=== PATIENT | male | born 1960 | race African-American/Black ===

== ENCOUNTER 2023-04-27 11:46 | Inpatient (IN) | payer MEDICAID ==
[~2023-04-27] VITALS: Ht 185.4 cm; Wt 80.9 kg
[2023-04-27 14:50] LABS: ALANINE AMINOTRANSFERASE 19 U/L (12-78); ALBUMIN 3.9 G/DL (3.4-5.0); ALBUMIN/GLOBULIN RATIO 0.9 (1.1-1.5); ALKALINE PHOSPHATASE 64 IU/L (46-116); ANION GAP 6 (8-16); ASPARTATE AMINO TRANSFERASE 22 U/L (10-37); BILIRUBIN,TOTAL 0.3 MG/DL (0.1-1.0); BLOOD UREA NITROGEN 12 MG/DL (7-18); BUN/CREATININE RATIO 10.5 (10.0-20.0); CHLORIDE 102 MMOL/L (99-107); CREATININE 1.14 MG/DL (0.60-1.10); GLUCOSE 73 MG/DL (70-104); POTASSIUM 3.8 MMOL/L (3.5-5.1); SODIUM 140 MMOL/L (135-145); TOTAL CARBON DIOXIDE 31.7 MMOL/L (24-32); TOTAL PROTEIN 8.2 G/DL (6.4-8.2); eCRCL 77 ML/MIN; eGFR 79 ML/MIN
[2023-04-27 14:51] LABS: BASOPHILS % (AUTO) 0.2 % (0-1); EOSINOPHILS # (AUTO) 0.1 X10'3 (0-0.9); EOSINOPHILS % (AUTO) 3.2 % (0-6); HEMOGLOBIN 14.7 g/dl (14.0-17.9); LYMPHOCYTES # (AUTO) 1.2 X10'3 (1.1-4.8); LYMPHOCYTES % (AUTO) 38.2 % (21-51); MEAN CORPUSCULAR HGB CONC 32.8 g/dL (33.0-36.5); MEAN CORPUSCULAR VOLUME 94.5 FL (78-98); MEAN PLATELET VOLUME 8.6 FL (7.4-10.4); MONOCYTES # (AUTO) 0.3 X10'3 (0-0.9); MONOCYTES % (AUTO) 10.6 % (2-12); NEUTROPHILS # (AUTO) 1.5 X10'3 (1.8-7.7); NEUTROPHILS % (AUTO) 47.8 % (42-75); PLATELET COUNT 133 X10'3 (140-440); RED BLOOD COUNT 4.76 X10'6 (4.70-6.10); RED CELL DISTRIBUTION WIDTH 14.3 % (11.5-14.5); WHITE BLOOD COUNT 3.1 X10'3 (4.5-11.0)
--- NOTE | 2023-04-27 15:10 | NUR ---
ATTEMPTED TO CALL DR WHYTE FOR DR LAY. LEFT A MESSAGE- LM
[2023-04-27] MEDS ORDERED: cefTAZidime inj 2 GM in normal saline 100ml IV soln 100 ML IV ONE (15:15)
[2023-04-27] MEDS ORDERED: VANCOmycin 2,000MG in NS 500ml IV soln IV ONE (16:00)
[2023-04-27] MEDS ORDERED: HYDROcodone/acetaminophen 5mg/325mg tablet PO PRN (17:15)
[2023-04-27] MEDS ORDERED: magnesium hydroxide 30ml (MOM) UD suspension PO PRN (17:15)
[2023-04-27] MEDS ORDERED: morphine 2 MG/ML inj. syringe IV PRN ×2 (17:15)
[2023-04-27] MEDS ORDERED: ondansetron/PF 4mg/2ml inj IV PRN (17:15)
[2023-04-27] MEDS ORDERED: mag hydrox/Alum hydrox/simeth 30ml oral suspension PO PRN (17:15)
[2023-04-27] MEDS ORDERED: acetaminophen 325mg tablet PO PRN ×2 (17:15)
[2023-04-27] MEDS ORDERED: HYDROcodone/acetaminophen 10/325mg tab PO PRN (17:15)
[2023-04-27 17:43] LABS: PRO BRAIN NATRIURETIC PEPTIDE 155 PG/ML (0-125)
[2023-04-27 17:44] LABS: BILIRUBIN,URINE NEGATIVE (Neg); CLARITY,URINE CLEAR (Clear); COLOR,URINE YELLOW (Yellow); GLUCOSE, URINE NEGATIVE (Neg); KETONES,URINE NEGATIVE (Neg); LEUKOCYTE ESTERASE ,URINE NEGATIVE (Neg); NITRITES, URINE NEGATIVE (Neg); OCCULT BLOOD,URINE NEGATIVE (Neg); PH,URINE 6.5 (4.8-8.0); PROTEIN,URINE NEGATIVE (Neg); UROBILINOGEN,URINE 0.2 E.U/dL (0.2-1.0)
[2023-04-27 17:46] LABS: UA COLLECTION TYPE VOIDED
--- NOTE | 2023-04-27 18:07 | NUR ---
Per Dr. Vickers, he spoke to Dr. Vazquez about this patient and that Dr. Vazquez did not think patient need to be admitted. Charge nurse Lavon and Scrub Woman aware of this
--- NOTE | 2023-04-27 18:23 | NUR ---
Called Yamini Townsend (supervisor contact lens on file) without success. Left voicemail to call back ER. Per patient his caregiver/provider Jovany is the one who can give him a ride. Patient stated that I can call Yamini and have Yamini call Jovany to pick him up
[2023-04-27] MEDS: docusate sod 100mg capsule PO SCH (20:00)
[2023-04-27] MEDS ORDERED: TRAM50TA2 PO (20:26)
[2023-04-27] MEDS ORDERED: TIZA-189 PO (20:26)
[2023-04-27] MEDS ORDERED: APIX5TAB3 PO (20:26)
--- NOTE | 2023-04-27 22:24 | NUR ---
report called to floor nurse. pt tx to room 4021a by tech
[2023-04-27 22:50] VITALS: BP 144/95; PULSE 67; RESP 18; TEMP 97.1; O2SAT 99
[2023-04-28] MEDS: metroNIDAZOLE-Flagyl 500mg/NS 100 ML IV SCH ×2 (00:04→09:04)
[2023-04-28] MEDS ORDERED: vancomycin/NS 1 GM ADD-VANTAGE 250 ML IV SCH (04:00)
[2023-04-28 06:00] VITALS: BP 138/85; PULSE 64; RESP 14; TEMP 97.9; O2SAT 98
[2023-04-28 06:07] LABS: BASOPHILS % (AUTO) 1.1 % (0-1); EOSINOPHILS # (AUTO) 0.1 X10'3 (0-0.9); EOSINOPHILS % (AUTO) 2.8 % (0-6); HEMATOCRIT 40.7 % (42.0-52.0); HEMOGLOBIN 13.2 g/dl (14.0-17.9); LYMPHOCYTES # (AUTO) 1.3 X10'3 (1.1-4.8); LYMPHOCYTES % (AUTO) 36.1 % (21-51); MEAN CORPUSCULAR HEMOGLOBIN 30.5 PG (27.0-31.0); MEAN CORPUSCULAR HGB CONC 32.5 g/dL (33.0-36.5); MEAN CORPUSCULAR VOLUME 93.8 FL (78-98); MEAN PLATELET VOLUME 8.8 FL (7.4-10.4); MONOCYTES # (AUTO) 0.4 X10'3 (0-0.9); MONOCYTES % (AUTO) 12.3 % (2-12); NEUTROPHILS # (AUTO) 1.7 X10'3 (1.8-7.7); NEUTROPHILS % (AUTO) 47.7 % (42-75); PLATELET COUNT 113 X10'3 (140-440); RED BLOOD COUNT 4.34 X10'6 (4.70-6.10); RED CELL DISTRIBUTION WIDTH 14.2 % (11.5-14.5); WHITE BLOOD COUNT 3.5 X10'3 (4.5-11.0)
[2023-04-28 06:24] LABS: ALBUMIN 3.2 G/DL (3.4-5.0); ANION GAP 5 (8-16); BLOOD UREA NITROGEN 10 MG/DL (7-18); BUN/CREATININE RATIO 10.3 (10.0-20.0); CALCIUM 9.2 MG/DL (8.5-10.1); CHLORIDE 105 MMOL/L (99-107); CREATININE 0.97 MG/DL (0.60-1.10); GLUCOSE 91 MG/DL (70-104); POTASSIUM 3.9 MMOL/L (3.5-5.1); SODIUM 140 MMOL/L (135-145); TOTAL CARBON DIOXIDE 30.3 MMOL/L (24-32); eCRCL 90 ML/MIN; eGFR > 90 ML/MIN
--- NOTE | 2023-04-28 06:39 | NUR ---
Problems reprioritized. Patient report given, questions answered & plan of care reviewed with ALEJO MARADIAGA.
--- NOTE | 2023-04-28 07:27 | NUR ---
Patient in room [facility]TH[facility] 4021A. I have received report from MAO BELLA RN and had the opportunity to ask questions and assume patient care.
--- NOTE | 2023-04-28 07:47 | NUR ---
POSITIVE BLOOD CULTURE GRAM POSITIVE COCCI IN CLUSTERS FROM LEFT ARM IN AEROBIC BOTTLE AT 16 HOURS, DR KNIGHT AWAITING CALL BACK
[2023-04-28] MEDS: docusate sod 100mg capsule PO SCH (09:03)
[2023-04-28 10:00] VITALS: BP 140/117; PULSE 71; RESP 16; TEMP 97.9; O2SAT 100
[2023-04-28] MEDS ORDERED: CefTRIAXone/D5W-Rocephin 1gm 50 ML IV SCH (15:00)
--- NOTE | 2023-04-28 17:02 | NUR ---
PATIENT LEFT AMA, PATIENT WAS EDUCATED ON RISKS AND BENEFITS OF LEAVING WITHOUT TREATMENT PATIENT STATED THEY WANT TO LEAVE ANYWAY
[2023-04-29] MEDS ORDERED: VANCOMYCIN LEVEL IV ONE (03:30)
== END 2023-04-28 17:05 | disposition left against medical advice (07) | DRG 349 ==
LOC: ER 11:47 → ED HOLD 17:15 → EDBEDREQ 22:10 → ORTHO 4S 22:35
PROVIDERS: ADMIT Internal Medicine; ATTEND Internal Medicine
DX: T84.89XA Other specified complication of internal orthopedic prosthetic devices, implants and grafts, initial encounter (principal); D61.818 Other pancytopenia; D69.6 Thrombocytopenia, unspecified; M86.8X7 Other osteomyelitis, ankle and foot; Z53.21 Procedure and treatment not carried out due to patient leaving prior to being seen by health care provider; F17.210 Nicotine dependence, cigarettes, uncomplicated; N18.2 Chronic kidney disease, stage 2 (mild); R91.1 Solitary pulmonary nodule; G89.29 Other chronic pain; X58.XXXA Exposure to other specified factors, initial encounter; Y83.8 Other surgical procedures as the cause of abnormal reaction of the patient, or of later complication, without mention of misadventure at the time of the procedure; Z79.01 Long term (current) use of anticoagulants; Z86.718 Personal history of other venous thrombosis and embolism; Y92.89 Other specified places as the place of occurrence of the external cause
CPT/HCPCS: 36415; 71045; 80048; 80053; 81003; 83605; 83880; 84145; 85025; 85651; 87040; 87081; 96365; 99285; G0378; J0713; J3370; J3490; J7040

== ENCOUNTER 2023-05-01 14:32 | Day surgery (SDC) | payer MEDICAID ==
[2023-05-01] VITALS (8 sets, daily range): BP systolic 128–165; BP diastolic 74–106; PULSE 54–84; RESP 13–19; TEMP 97.6; O2SAT 97–100
[~2023-05-01] VITALS: Ht 185.4 cm; Wt 77.0 kg
[~2023-05-01 14:32] MED LIST: APIX5TAB3 PO; TIZA-189 PO; TRAM50TA2 PO; cefazolin 2gm/D5W 100mL 100 ML IV ONE; famotidine 20mg tablet PO ONE; ringers solution, lacted 1,000 ML IV SCH
[2023-05-01] MEDS ORDERED: meperidine/PF 25mg/ml syringe IV PRN ×3 (16:15)
[2023-05-01] MEDS ORDERED: ondansetron/PF 4mg/2ml inj IV PRN (16:15)
[2023-05-01] MEDS ORDERED: morphine 4 MG/ML inj SYRINge IV PRN (16:15)
[2023-05-01] MEDS ORDERED: proCHLORperazine 10 MG/2 ml inj IV PRN (16:15)
[2023-05-01] MEDS ORDERED: ringers solution, lacted 1,000 ML IV SCH (16:15)
[2023-05-01] MEDS ORDERED: morphine 2 MG/ML inj. syringe IV PRN (16:15)
[2023-05-01] MEDS ORDERED: propofol inj 20 ML IV ONE (16:18)
[2023-05-01] MEDS ORDERED: fentaNYL/PF 50MCG/1 ML 2ML syringe ONE (16:19)
--- NOTE | 2023-05-01 16:52 | NUR ---
Received from OR via STRETCHER, accompanied by Anesthesiologist WINSTON and report given by Anesthesiolgist. PT BARELY ROUSABLE TO VERBAL STIMULI. OO2 AT 6 LPM PER MASK W/ SAO2 100 %. 20G IV TO RFA. MONITOR SR. VSS. DENIES PAIN - WILL CONTINUE TO MONITOR. L FOOT DRESSING ENCASED IN [place] WRAP - D&I. Addendum: 05/01/23 at 1716 by Noe Toussaint RN Amended: Links added.
[2023-05-01] MEDS ORDERED: ROPIVAcaine 0.5% (5mg/ml) 30ml vial IJ ONE (17:09)
--- NOTE | 2023-05-01 18:12 | NUR ---
PT NOW AWAKE AND ALERT ALT HO [place] AND SLOW TO COMPREHEND INSTRUCTIONS. DC INSTRUCTION ALSO GIVEN TO [facility] WORKER MORRO.AFTER SOME INITIAL COUGHING PRODUCTIVE OF LOOSE CLEAR SPUTUM, HE WAS ABLE TO DEEP BREATHE W/OUT COUGH. MAINTAINED SAO2 AT >95 ON RA. DENIES PAIN THROUGHOUT RR STAY. URINATED x2 - 200 ML EACH TIME - CLEAR DARK, THEN LIGHT URINE. ABLE TO EAT APPLESAUCE, ICE CHIPS AND CRACKERS W/OUT NAUSEA. MONITOR SR. HX HTN AND B/P ELEVATED AT TIMES. TAKES TRAMADOL AT HOME DISCHARGED PER W/C TO [facility] WORKER MORRO W/OUT INCIDENT. Addendum: 05/01/23 at 1822 by Noe Toussaint RN Amended: Links added.
== END 2023-05-01 18:12 | disposition home or self-care (01) ==
LOC: PAS 14:32
PROVIDERS: ATTEND Orthopaedic Surgery Orthopaedic Trauma
DX: T84.7XXA Infection and inflammatory reaction due to other internal orthopedic prosthetic devices, implants and grafts, initial encounter (principal); M19.90 Unspecified osteoarthritis, unspecified site; G89.29 Other chronic pain; M41.9 Scoliosis, unspecified; F17.210 Nicotine dependence, cigarettes, uncomplicated; Z86.19 Personal history of other infectious and parasitic diseases; Z98.890 Other specified postprocedural states; Z86.718 Personal history of other venous thrombosis and embolism; Z79.01 Long term (current) use of anticoagulants; Z79.899 Other long term (current) drug therapy; Y83.8 Other surgical procedures as the cause of abnormal reaction of the patient, or of later complication, without mention of misadventure at the time of the procedure; Y92.89 Other specified places as the place of occurrence of the external cause
CPT/HCPCS: 20680; 36415; 82948; 83605; 85730; 87040; 93005; A6222; J0690; J2704; J2795; J3010; J7030; J7120; Z7506; Z7512; A4618; A6449; A7000

== ENCOUNTER 2023-08-19 10:24 | Day surgery (SDC) | payer MEDICAID ==
[~2023-08-19 10:24] MED LIST changes: -cefazolin 2gm/D5W 100mL 100 ML IV ONE; -famotidine 20mg tablet PO ONE; -ringers solution, lacted 1,000 ML IV SCH
== END 2023-08-19 12:45 | disposition home or self-care (01) ==
LOC: SSTAY O 10:24
PROVIDERS: ATTEND Nurse Practitioner Family
DX: M86.171 Other acute osteomyelitis, right ankle and foot (principal)
CPT/HCPCS: 36569; 36573; 76942; C1751